=== PATIENT | female | born 1985 | race Caucasian/White ===

== ENCOUNTER 2016-06-29 17:57 | Emergency (ER) | payer OTHER ==
[~2016-06-29] VITALS: Ht 149.9 cm; Wt 99.3 kg
[~2016-06-29 17:57] MED LIST: ABILIFY10 MG PO; ABILIFY5 MG PO; ACETAZOLAMIDE125 MG PO; ADVIL,NUPRIN,M200 MG PO; AMBIEN5 MG PO; ATARAX,VISTARIL50 MG PO; ATIVAN1 MG PO; BUSPAR10 MG PO; CELEXA20 MG PO; DESYREL100 MG PO; DIAMOX PO; DIAMOX SEQUELS500 MG PO; DIAMOX250 MG PO; DIAMOX500 MG PO; EFFEXOR XR150 MG PO; FETZIMA120 MG PO; FETZIMA40 MG PO; FETZIMA80 MG PO; IMITREX100 MG PO; KEFLEX500 MG PO; LAMICTAL25 MG PO; NAPROSYN500 MG PO; NEURONTIN300 MG PO; NORTRIPTYLINE H10 MG PO; PRISTIQ50 MG PO; PROZAC20 MG PO; REGLAN5 MG PO; RELPAX40 MG PO; REQUIP0.25 MG PO; REQUIP0.5 MG PO; RESTORIL15 MG PO; REXULTI0.5 MG PO; SERTRALINE HCL100 MG PO; TOPAMAX100 MG PO; TOPAMAX200 MG PO; TOPIRAMATE100 MG PO; TRAZODONE HCL100 MG PO; TRAZODONE HCL300 MG PO; VIIBRYD40 MG PO; VISTARIL50 MG PO; WELLBUTRIN XL300 MG PO; ZOLOFT100 MG PO
[2016-06-29] MEDS ORDERED: TRAZODONE HCL100 MG PO (19:51)
[2016-06-29] MEDS ORDERED: ATIVAN0.5 MG PO (19:54)
[2016-06-29] MEDS ORDERED: ATARAX,VISTARIL25 MG PO (19:55)
[2016-06-29 19:56] VITALS: BP 111/72
== END 2016-06-29 19:58 | disposition home or self-care (01) ==
LOC: EME → EDBD 17:57 → EME 17:57
DX: F10.129 Alcohol abuse with intoxication, unspecified (principal); F32.9 Major depressive disorder, single episode, unspecified; R00.0 Tachycardia, unspecified
CPT/HCPCS: 99281; 99285; J7030

== ENCOUNTER 2016-09-18 13:55 | Inpatient (IN) | payer OTHER ==
[~2016-09-18] VITALS: Ht 149.9 cm; Wt 100.4 kg
[~2016-09-18 13:55] MED LIST changes: +ATARAX,VISTARIL25 MG PO; +ATIVAN0.5 MG PO
[2016-09-18 14:32] LABS: MCH 27.9 PG (29.0-34.0); MCHC 32.6 G/DL (30.0-36.0); MCV 85.7 FL (83-99); MEAN PLAT.VOLUME 9.2 uM^3 (9.5-12.4); PLATELET COUNT 249 K/uL (156-360); RBC DIS.WIDTH-CV 12.6 % (11.8-14.6); RBC DIS.WIDTH-SD 39.6 % (39-53); RED BLOOD COUNT 4.55 M/uL (3.80-5.20); WHITE BLOOD COUNT 8.7 K/uL (4.1-10.2)
[2016-09-18 14:41] LABS: CHLORIDE 108 mEq/L (99-109); POTASSIUM 3.6 mEq/L (3.7-5.4); SODIUM 137 mEq/L (136-147)
[2016-09-18 14:43] LABS: ADD MEDTOX COMMENT Y; AMPHETAMINE NEGATIVE (500 ng/mL); BARBITURATES NEGATIVE (200 ng/mL); BENZODIAZEPINES PRESUMPTIVE POSITIVE (150 ng/mL); COCAINE NEGATIVE (150 ng/mL); INTERNAL CONTROLS VALID? YES; METHADONE NEGATIVE (200 ng/mL); METHAMPHETAMINE NEGATIVE (500 ng/mL); OPIATES (MORPHINE) NEGATIVE (100 ng/mL); OXYCODONE NEGATIVE (100 ng/mL); PHENCYCLIDINE NEGATIVE (25 ng/mL); PROPOXYPHENE NEGATIVE (300 ng/mL); THC CANNABINOIDS NEGATIVE (50 ng/mL); TRICYCLIC ANTIDEPRESSANTS NEGATIVE (300 ng/mL)
[2016-09-18 14:43] LABS: GLUCOSE 104 mg/dL (70-99)
[2016-09-18 14:44] LABS: ANION GAP 10 MEQ/L (2-14)
[2016-09-18 14:46] LABS: SERUM ETHYL ALCOHOL < 10 mg/dL
[2016-09-18 14:47] LABS: GFR ESTIMATE (CALCULATED) > 59 mL/min/
[2016-09-18 14:48] LABS: UREA NITROGEN (BUN) 12 mg/dL (9-23)
[2016-09-18 15:03] LABS: BENZODIAZEPINES QUANT VALUE 0 NG/ML; BENZODIAZEPINES, URINE SCREEN Negative (200 ng/mL)
[2016-09-18] MEDS ORDERED: ATIVAN2 MG PO (17:46)
[2016-09-18] MEDS ORDERED: REQUIP1 MG PO (17:46)
[2016-09-18] MEDS ORDERED: LAMICTAL150 M1 PO (17:47)
[2016-09-18] MEDS ORDERED: MAGNESIUM400 M1 PO (17:47)
[2016-09-18] MEDS ORDERED: CLONAZEPAM0.5 MG PO (17:48)
[2016-09-18 19:12] VITALS: BP 115/80
[2016-09-18 19:14] VITALS: BP 122/75
[2016-09-18] MEDS ORDERED: ATIVAN0.5 MG PO (20:14)
[2016-09-18] MEDS ORDERED: MAXALT10 MG PO (20:14)
[2016-09-18] MEDS ORDERED: TYLENOL EXTRA500 MG PO (20:15)
[2016-09-18] MEDS ORDERED: VERTICALM25 MG PO (20:16)
[2016-09-18] MEDS ORDERED: REGLAN5 MG PO (20:17)
[2016-09-19 07:44] VITALS: BP 108/57
[2016-09-19 15:18] VITALS: BP 124/70
[2016-09-20 08:01] VITALS: BP 121/58
[2016-09-20 15:27] VITALS: BP 134/71
[2016-09-21 07:54] VITALS: BP 121/80
[2016-09-21 16:28] VITALS: BP 98/57
[2016-09-22 07:42] VITALS: BP 121/70
[2016-09-22] MEDS ORDERED: GABAPENTIN600 MG PO (10:09)
[2016-09-22] MEDS ORDERED: LAMOTRIGINE200 MG PO (10:09)
== END 2016-09-22 12:02 | disposition home or self-care (01) | DRG 885 ==
LOC: EME 13:55 → 1WEST 17:49 → EDOF 17:49 → 1WEST 19:08
DX: F33.2 Major depressive disorder, recurrent severe without psychotic features (principal); Z68.41 Body mass index [BMI] 40.0-44.9, adult; F41.1 Generalized anxiety disorder; E66.01 Morbid (severe) obesity due to excess calories; F60.9 Personality disorder, unspecified; R45.851 Suicidal ideations; H54.8 Legal blindness, as defined in USA; Z91.5 Personal history of self-harm; Z86.59 Personal history of other mental and behavioral disorders; F43.10 Post-traumatic stress disorder, unspecified; G43.909 Migraine, unspecified, not intractable, without status migrainosus
CPT/HCPCS: 80048; 84999; 85027; 90839; 97150 GO; 97165 GO; 99281; 99285; G0480

== ENCOUNTER 2016-10-31 10:10 | Emergency (ER) | payer OTHER ==
[~2016-10-31] VITALS: Ht 149.9 cm; Wt 97.5 kg
[~2016-10-31 10:10] MED LIST changes: +ATIVAN2 MG PO; +CLONAZEPAM0.5 MG PO; +GABAPENTIN600 MG PO; +LAMICTAL150 M1 PO; +LAMOTRIGINE200 MG PO; +MAGNESIUM400 M1 PO; +MAXALT10 MG PO; +REQUIP1 MG PO; +TYLENOL EXTRA500 MG PO; +VERTICALM25 MG PO
[2016-10-31] MEDS ORDERED: FIORICET,ESG1 TABLET PO (13:40)
[2016-10-31 14:47] VITALS: BP 129/82
== END 2016-10-31 14:47 | disposition home or self-care (01) ==
LOC: EXP 10:10 → EME 10:10 → EXP 14:47
DX: G43.909 Migraine, unspecified, not intractable, without status migrainosus (principal); F32.9 Major depressive disorder, single episode, unspecified; F41.9 Anxiety disorder, unspecified; H54.8 Legal blindness, as defined in USA; G93.2 Benign intracranial hypertension; H35.109 Retinopathy of prematurity, unspecified, unspecified eye; Z91.5 Personal history of self-harm
CPT/HCPCS: 99281; 99283; J1100; J1885

== ENCOUNTER 2016-11-10 16:55 | Emergency (ER) | payer OTHER ==
[~2016-11-10] VITALS: Ht 149.9 cm; Wt 99.2 kg
[~2016-11-10 16:55] MED LIST changes: +FIORICET,ESG1 TABLET PO
[2016-11-10] MEDS ORDERED: MOTRIN600 MG PO (18:51)
[2016-11-10 19:24] VITALS: BP 106/56
== END 2016-11-10 19:26 | disposition home or self-care (01) ==
LOC: EME 16:55
DX: G43.909 Migraine, unspecified, not intractable, without status migrainosus (principal); H57.11 Ocular pain, right eye; H54.8 Legal blindness, as defined in USA
CPT/HCPCS: 99281; 99284; J1100; J1200; J1885; J2765; J7030

== ENCOUNTER 2016-12-07 19:07 | Emergency (ER) | payer OTHER ==
[~2016-12-07] VITALS: Ht 124.5 cm; Wt 99.1 kg
[~2016-12-07 19:07] MED LIST changes: +MOTRIN600 MG PO
[2016-12-07 20:23] LABS: HEMATOCRIT 41.5 % (36.0-46.0); MCHC 32.5 G/DL (30.0-36.0); MCV 86.1 FL (83-99); MEAN PLAT.VOLUME 9.5 uM^3 (9.5-12.4); PLATELET COUNT 262 K/uL (156-360); RBC DIS.WIDTH-CV 13.2 % (11.8-14.6); RBC DIS.WIDTH-SD 41.2 % (39-53); RED BLOOD COUNT 4.82 M/uL (3.80-5.20); WHITE BLOOD COUNT 8.1 K/uL (4.1-10.2)
[2016-12-07 20:31] LABS: CHLORIDE 108 mEq/L (99-109); POTASSIUM 3.5 mEq/L (3.7-5.4); SODIUM 140 mEq/L (136-147)
[2016-12-07 20:32] LABS: GLUCOSE 89 mg/dL (70-99)
[2016-12-07 20:34] LABS: ANION GAP 11 MEQ/L (2-14)
[2016-12-07 20:36] LABS: GFR ESTIMATE (CALCULATED) > 59 mL/min/
[2016-12-07 20:37] LABS: UREA NITROGEN (BUN) 15 mg/dL (9-23)
[2016-12-07 20:42] LABS: TROP-I INTERPRETATION NEGATIVE; TROPONIN-I < 0.01 ng/mL (0.0-0.30)
[2016-12-07 22:31] LABS: QUANTITATIVE HCG < 4.0 MIU/ML
[2016-12-07 22:40] VITALS: BP 102/71
[2016-12-09 16:59] LABS: POINT-OF-CARE METER ID UU14100415
== END 2016-12-07 22:42 | disposition home or self-care (01) ==
LOC: EME → EDBD 19:07 → EME 19:07
PROVIDERS: Physician Assistant Medical
DX: R55 Syncope and collapse (principal); H54.8 Legal blindness, as defined in USA
CPT/HCPCS: 80048; 82948; 84484; 84702; 85027; 93005; 99281; 99284; J7030

== ENCOUNTER 2017-07-14 16:21 | Inpatient (IN) | payer OTHER ==
[~2017-07-14] VITALS: Ht 152.4 cm; Wt 90.0 kg
[~2017-07-14 16:21] MED LIST changes: -MAGNESIUM400 M1 PO; +MAGNESIUM500 MG PO
[2017-07-14 18:11] LABS: HEMATOCRIT 44.1 % (36.0-46.0); HEMOGLOBIN 14.6 G/DL (11.9-15.5); MCHC 33.1 G/DL (30.0-36.0); MCV 87.7 FL (83-99); PLATELET COUNT 270 K/uL (156-360); RBC DIS.WIDTH-CV 12.7 % (11.8-14.6); RBC DIS.WIDTH-SD 40.7 % (39-53); RED BLOOD COUNT 5.03 M/uL (3.80-5.20); WHITE BLOOD COUNT 7.8 K/uL (4.1-10.2)
[2017-07-14 18:25] LABS: ALBUMIN 4.6 g/dL (3.2-4.8); CHLORIDE 111 mEq/L (99-109); POTASSIUM 3.8 mEq/L (3.7-5.4); SODIUM 140 mEq/L (136-147)
[2017-07-14 18:27] LABS: GLUCOSE 93 mg/dL (70-99)
[2017-07-14 18:28] LABS: TOTAL PROTEIN 7.9 g/dL (6.4-8.3)
[2017-07-14 18:29] LABS: TOTAL BILIRUBIN 0.3 mg/dL (0.0-1.0)
[2017-07-14 18:30] LABS: SERUM ETHYL ALCOHOL < 10 mg/dL
[2017-07-14 18:31] LABS: ALKALINE PHOSPHATASE 79 IU/L (3-129); CREATININE 0.9 mg/dL (0.6-1.3); GFR ESTIMATE (CALCULATED) > 59 mL/min/
[2017-07-14 18:32] LABS: UREA NITROGEN (BUN) 14 mg/dL (9-23)
[2017-07-14 18:33] LABS: AST (GOT) 24 IU/L (2-34)
[2017-07-14 18:34] LABS: ALT (GPT) 21 IU/L (3-49)
[2017-07-14 19:22] LABS: APPEARANCE CLEAR ((CLEAR)); BILIRUBIN NEGATIVE; BLOOD NEGATIVE; COLOR YELLOW ((YELLOW)); GLUCOSE (STRIP) NEGATIVE; KETONES NEGATIVE; LEUKOCYTES NEGATIVE; NITRITE NEGATIVE; PROTEIN (STRIP) NEGATIVE; SPECIFIC GRAVITY 1.014 (1.000-1.030); UROBILINOGEN 0.2 MG/DL (0.2-1.0)
[2017-07-14 19:29] LABS: COCAINE NEGATIVE (150 ng/mL); METHAMPHETAMINE NEGATIVE (500 ng/mL); PHENCYCLIDINE NEGATIVE (25 ng/mL); THC CANNABINOIDS NEGATIVE (50 ng/mL)
[2017-07-14 19:30] LABS: AMPHETAMINE NEGATIVE (500 ng/mL); BARBITURATES NEGATIVE (200 ng/mL); BENZODIAZEPINES PRESUMPTIVE POSITIVE (150 ng/mL); BUPRENORPHINE NEGATIVE (10 ng/mL); METHADONE NEGATIVE (200 ng/mL); OPIATES (MORPHINE) NEGATIVE (100 ng/mL); OXYCODONE NEGATIVE (100 ng/mL); PROPOXYPHENE NEGATIVE (300 ng/mL); TRICYCLIC ANTIDEPRESSANTS NEGATIVE (300 ng/mL)
[2017-07-14 20:04] LABS: BENZODIAZEPINES, URINE SCREEN Negative (200 ng/mL)
[2017-07-14 21:41] VITALS: BP 129/77
[2017-07-14] MEDS ORDERED: KLONOPIN0.5 M1 PO (22:28)
[2017-07-14] MEDS ORDERED: VISTARIL50 MG PO (22:33)
[2017-07-14] MEDS ORDERED: TYLENOL325 M2 PO (22:35)
[2017-07-15 01:05] VITALS: BP 129/77
[2017-07-15 08:06] VITALS: BP 111/77
[2017-07-15] MEDS ORDERED: KLONOPIN0.5 M1 PO (12:24)
[2017-07-15 15:39] VITALS: BP 123/65
[2017-07-16 07:45] VITALS: BP 106/51
[2017-07-16 15:35] VITALS: BP 150/72
[2017-07-17 07:48] VITALS: BP 108/58
[2017-07-17 15:44] VITALS: BP 135/86
[2017-07-18 08:00] VITALS: BP 105/55
[2017-07-18] MEDS ORDERED: CLONAZEPAM1 MG PO (09:19)
[2017-07-18] MEDS ORDERED: HYDROXYZINE PAM50 MG PO (09:29)
== END 2017-07-18 10:33 | disposition home or self-care (01) | DRG 885 ==
LOC: EME 16:21 → 1WEST 20:14 → EDOF 20:14 → ENRESERV 20:55 → 1WEST 21:35
PROVIDERS: Emergency Medicine
DX: F32.1 Major depressive disorder, single episode, moderate (principal); F60.3 Borderline personality disorder; F12.10 Cannabis abuse, uncomplicated; F11.10 Opioid abuse, uncomplicated; G47.00 Insomnia, unspecified; F41.1 Generalized anxiety disorder; F43.10 Post-traumatic stress disorder, unspecified; H54.8 Legal blindness, as defined in USA; G43.909 Migraine, unspecified, not intractable, without status migrainosus; H35.00 Unspecified background retinopathy; G93.2 Benign intracranial hypertension; G25.81 Restless legs syndrome; Z91.5 Personal history of self-harm
CPT/HCPCS: 80053; 80175 90; 81003; 84999; 85027; 90839; 97150 GO; 97166 GO; 99281; 99285; G0480; Q0177

== ENCOUNTER 2017-08-10 13:59 | Emergency (ER) | payer OTHER ==
[~2017-08-10] VITALS: Ht 152.4 cm; Wt 94.0 kg
[~2017-08-10 13:59] MED LIST changes: +CLONAZEPAM1 MG PO; +HYDROXYZINE PAM50 MG PO; +KLONOPIN0.5 M1 PO; +TYLENOL325 M2 PO
[2017-08-10] MEDS ORDERED: FIORICET 50-301 EAC1 PO (17:20)
[2017-08-10 17:45] VITALS: BP 118/73
== END 2017-08-10 17:45 | disposition home or self-care (01) ==
LOC: EME 13:59
DX: G43.909 Migraine, unspecified, not intractable, without status migrainosus (principal); F43.10 Post-traumatic stress disorder, unspecified; F32.9 Major depressive disorder, single episode, unspecified; G93.2 Benign intracranial hypertension; R56.9 Unspecified convulsions
CPT/HCPCS: 99281; 99285; J0780; J1100; J7030

== ENCOUNTER 2017-09-02 13:17 | Emergency (ER) | payer OTHER ==
[~2017-09-02] VITALS: Ht 152.4 cm; Wt 91.6 kg
[~2017-09-02 13:17] MED LIST changes: +FIORICET 50-301 EAC1 PO
[2017-09-02 15:16] LABS: HEMATOCRIT 39.4 % (36.0-46.0); HEMOGLOBIN 13.2 G/DL (11.9-15.5); MCH 29.3 PG (29.0-34.0); MCHC 33.5 G/DL (30.0-36.0); MCV 87.4 FL (83-99); PLATELET COUNT 235 K/uL (156-360); RBC DIS.WIDTH-CV 12.7 % (11.8-14.6); RBC DIS.WIDTH-SD 40.1 % (39-53); RED BLOOD COUNT 4.51 M/uL (3.80-5.20); WHITE BLOOD COUNT 8.9 K/uL (4.1-10.2)
[2017-09-02 15:25] LABS: CHLORIDE 107 mEq/L (99-109); POTASSIUM 3.4 mEq/L (3.7-5.4); SODIUM 140 mEq/L (136-147)
[2017-09-02 15:27] LABS: GLUCOSE 84 mg/dL (70-99)
[2017-09-02 15:30] LABS: CREATININE 0.8 mg/dL (0.6-1.3); GFR ESTIMATE (CALCULATED) > 59 mL/min/; SERUM ETHYL ALCOHOL < 10 mg/dL
[2017-09-02 15:31] LABS: UREA NITROGEN (BUN) 11 mg/dL (9-23)
[2017-09-02 15:39] LABS: QUANTITATIVE HCG < 4.0 MIU/ML
[2017-09-02 17:04] VITALS: BP 135/79
[2017-09-02 17:25] LABS: AMPHETAMINE NEGATIVE (500 ng/mL); BARBITURATES NEGATIVE (200 ng/mL); BENZODIAZEPINES PRESUMPTIVE POSITIVE (150 ng/mL); BUPRENORPHINE NEGATIVE (10 ng/mL); COCAINE PRESUMPTIVE POSITIVE (150 ng/mL); METHADONE NEGATIVE (200 ng/mL); METHAMPHETAMINE NEGATIVE (500 ng/mL); OPIATES (MORPHINE) NEGATIVE (100 ng/mL); OXYCODONE NEGATIVE (100 ng/mL); PHENCYCLIDINE NEGATIVE (25 ng/mL); PROPOXYPHENE NEGATIVE (300 ng/mL); THC CANNABINOIDS PRESUMPTIVE POSITIVE (50 ng/mL); TRICYCLIC ANTIDEPRESSANTS NEGATIVE (300 ng/mL)
[2017-09-02 18:00] LABS: BENZODIAZEPINES, URINE SCREEN POSITIVE (200 ng/mL)
== END 2017-09-02 17:07 | disposition home or self-care (01) ==
LOC: EME 13:17
PROVIDERS: Emergency Medicine
DX: R07.89 Other chest pain (principal); Z02.89 Encounter for other administrative examinations; F14.10 Cocaine abuse, uncomplicated; F12.10 Cannabis abuse, uncomplicated; F11.10 Opioid abuse, uncomplicated; F13.10 Sedative, hypnotic or anxiolytic abuse, uncomplicated; Z72.0 Tobacco use
CPT/HCPCS: 80048; 84702; 84999; 85027; 93005; 99281; 99284; G0480

== ENCOUNTER 2017-09-24 18:20 | Emergency (ER) | payer OTHER ==
[~2017-09-24] VITALS: Ht 152.4 cm; Wt 97.7 kg
[2017-09-24 19:40] VITALS: BP 115/85
== END 2017-09-24 19:50 | disposition home or self-care (01) ==
LOC: EME 18:20
DX: F44.5 Conversion disorder with seizures or convulsions (principal); F41.9 Anxiety disorder, unspecified; H54.8 Legal blindness, as defined in USA; F17.200 Nicotine dependence, unspecified, uncomplicated
CPT/HCPCS: 99281; 99283